=== PATIENT | male | born 1970 | race Caucasian/White ===

== ENCOUNTER 2017-03-31 12:55 | Inpatient (IN) | payer MEDICAID ==
[~2017-03-31] VITALS: Ht 172.7 cm; Wt 190.5 kg
--- NOTE | 2017-03-31 13:00 | NUR ---
PT BIBA FROM HOME FOR INCREASED GENERALIZED WEAKNESS OVER THE PAST COUPLE OF DAYS. PER EMS PATIENT WAS RECENTLY DX WITH DM 03/22/17. PT PLACED ON METFORMI 500MG. PATIENT WAS BROUGHT IN FROM HOME. PATIENT IS AOX4, SPEECH IS DELAYED, GARBLED. PATIENT AROUSABLE TO VERBAL STIMULI. PATIENT FOLLOWS COMMANDS. GCS 14, 3, 5, 6.
--- NOTE | 2017-03-31 13:01 | NUR ---
PT ARRIVED TO ED WITH AN IV TO RIGHT HAND 20 GAUGE.
[2017-03-31 13:16] VITALS: BP 138/89
[2017-03-31] MEDS ORDERED: METF500T PO (13:55)
--- NOTE | 2017-03-31 13:58 | NUR ---
X-Ray at bedside.
[2017-03-31 14:31] LABS: BASOPHILS # (AUTO) 0.2 K/uL (0.00-0.22); BASOPHILS % (AUTO) 2.4 % (0.0-2.0); EOSINOPHILS % (AUTO) 0.1 % (0.0-4.0); HEMATOCRIT 52.7 % (36-52); HEMOGLOBIN 16.5 g/dL (12.0-18.0); LYMPHOCYTES # (AUTO) 1.5 K/uL (2.0-11.5); LYMPHOCYTES % (AUTO) 15.3 % (20.5-51.1); MEAN CORPUSCULAR HEMOGLOBIN 28 pg (27-31); MEAN CORPUSCULAR HGB CONC 31 g/dL (33-37); MEAN CORPUSCULAR VOLUME 89 fL (80-94); MONOCYTES # (AUTO) 0.6 K/uL (0.8-1.0); MONOCYTES % (AUTO) 5.7 % (1.7-9.3); NEUTROPHILS # (AUTO) 7.7 K/uL (1.8-7.7); NEUTROPHILS % (AUTO) 76.5 % (42.2-75.2); PLATELET COUNT (AUTO) 118 K/uL (140-450); RED BLOOD CELL COUNT(AUTO) 5.96 MIL/uL (4.20-6.10); RED CELL DISTRIBUTION WIDTH 15.7 % (11.6-13.7)
[2017-03-31] MEDS ORDERED: NACL 0.9% 2,000 ML IV SCH (14:41)
[2017-03-31] MEDS ORDERED: NACL 0.9% 1,500 ML IV SCH (14:41)
[2017-03-31] MEDS ORDERED: SODIUM BICARBONATE 8.4% PFS 50 MEQ/50 ML SYR IVP ONE (14:45)
[2017-03-31] MEDS ORDERED: SODIUM BICARBONATE 8.4% 100 MEQ in NACL 0.9% 1,000 ML IV SCH (14:45)
[2017-03-31] MEDS ORDERED: INSULIN HUMAN REGULAR 100 UNITS in NACL 0.9% 100 ML IV ONE (14:45)
[2017-03-31 14:52] LABS: ALBUMIN 3.4 g/dL (3.4-5.0); AMYLASE 20 U/L (25-115); ANION GAP 33.1 (8-16); ASPARTATE AMINOTRANSFERASE 51 U/L (15-37); CARBON DIOXIDE 10.5 mmol/L (21-32); CHLORIDE 122 mmol/L (98-107); GFR ARICAN-AMERICAN 47 mL/min (>90); LIPASE 251 U/L (73-393); POTASSIUM 3.6 mmol/L (3.5-5.1); TOTAL BILIRUBIN 0.6 mg/dL (0.0-1.0); UREA NITROGEN, BLOOD 31 mg/dL (7-18)
[2017-03-31 14:55] LABS: CREATINE KINASE MB 0.4 ng/mL (0-3.6)
[2017-03-31 15:02] LABS: GLUCOSE 532 mg/dL (74-106); SODIUM SERUM 162 mmol/L (136-145)
[2017-03-31 15:03] LABS: ACETONE, SERUM LARGE (NEGATIVE)
[2017-03-31 15:17] LABS: APPEARANCE,URINE CLEAR (CLEAR); BILIRUBIN,URINE 2+ (NEGATIVE); BLOOD, URINE 3+ (NEGATIVE); COLOR,URINE YELLOW (YELLOW); LEUKOCYTE ESTERASE ,URINE NEGATIVE (NEGATIVE); NITRITE, URINE NEGATIVE (NEGATIVE); UGLUCOSE 3+ (NEGATIVE)
[2017-03-31 15:33] LABS: RBC,URINE 11-20 (MOD) /HPF (0-5); WBC,URINE 0-5 (RARE) /HPF (0-5)
[2017-03-31 15:40] LABS: FREE T4 (FREE THYROXINE) 0.96 ng/dL (0.76-1.46); THYROID STIMULATING HORMONE 0.65 uIU/mL (0.34-3.74)
--- NOTE | 2017-03-31 15:56 | NUR ---
NEIGHBORS AT BEDSIDE REPORT THE PATIENT WAS SEEN AT [facility] 02/28/17 AND WAS DX WITH DM AND SENT HOME WITH METFORMIN. PT WAS ALSO SEEN AT ANOTHER HOSPITAL 03/29/17 AND WAS DISCHARGED HOME AGAIN. PER THE NEIGHBORS, PATIENT HAS A LADY WHO HE PAYS THAT COOKS FOR HIM AND SHE REPORTED TO THE NEIGHBORS THAT THE PATIENT HAS NOT BEEN EATING WELL, YESTERDAY PT ONLY HAD 2 STRAWBERRIES WITH A DECREASE IN PO INTAKE.
[2017-03-31] MEDS ORDERED: INSULIN HUMAN REGULAR 100 UNITS in NACL 0.9% 100 ML IV SCH (16:15)
[2017-03-31] MEDS ORDERED: INSULIN LISPRO SLIDING SCALE 100 UNITS/ML VIAL SUBQ PRN (16:15)
[2017-03-31] MEDS ORDERED: NACL 0.9% 1,000 ML IV ONE (16:15)
[2017-03-31] MEDS ORDERED: ACETAMINOPHEN 325 MG TAB PO PRN (16:35)
[2017-03-31] MEDS ORDERED: ONDANSETRON 4 MG/2 ML VIAL IVP PRN (16:35)
[2017-03-31] MEDS ORDERED: HYDROcodone/APAP 5/325 MG 1 TAB TAB PO PRN (16:35)
[2017-03-31] MEDS: BLOOD GLUCOSE MONITORING 1 DEV DEV FS SCH ×6 (16:56→23:33)
--- NOTE | 2017-03-31 16:58 | NUR ---
MEDICATIONS INFUSING. PT TOLERATING WALL. WILL CONTINUE TO MONITOR.
--- NOTE | 2017-03-31 17:23 | NUR ---
PT WAS STILL IN ER UNABLE TO DO EKG FOR FLOOR ENDORSED TO RT NICOLE
[2017-03-31] MEDS ORDERED: MORPHINE SULFATE 2 MG/ML SYR IVP SCH (17:40)
--- NOTE | 2017-03-31 17:41 | NUR ---
CONSENT FOR CENTRAL LINE INSERTION OBTAINED AND SIGNED.
[2017-03-31] MEDS ORDERED: LORazepam 2 MG/ML VIAL IM/IVP SCH (17:43)
--- NOTE | 2017-03-31 18:50 | NUR ---
SPOKE TO ROGERIO REGARDING ICU BED. STATED , NURSES HAVE TO MOVE PATIENT TO THE FLOOR. PATIENT STILL IN ER
--- NOTE | 2017-03-31 19:17 | NUR ---
Pt report given to Manjinder DIAZ. Transfer of care at this time.
--- NOTE | 2017-03-31 19:50 | NUR ---
RECEIVED PT TRANSFERRED FROM ER VIA GURNEY, REPORT OBTAINED AT BEDSIDE, PT IS AOX1, DROWSY, ABLE TO FOLLOW SIMPLE COMMANDS, NO S/S OF SOB/DISTRESS, RHONCHI LUNG SOUNDS, ON O2 AT 2L VIA NC, CENTRAL LINE TO RIJ, TLC, PATENT, RUNNING NS AT 250ML/HR, INSULIN DRIP AT 5 UNITS/HR, DENIES CHEST PAIN, ST ON MANAGER TECHNICAL SUPPORT, SOFT LARGE ABDOMEN WITH HYPOACTIVE BOWEL SOUNDS, INCONTINENT WITH B&B'S, GENERALIZED WEAKNESS NOTED, GENERALIZED PAIN NOTED WHEN REPOSITION PT, SKIN IS INTACT, WARM AND DRY TO TOUCH, PERIPHERAL LINE TO LEFT AC, 18GA AND RIGHT [id number], PATENT AND SL. HOB ELEVATED 30 DEGREES, SAFETY PRECAUTION IN PLACE, WILL CONTINUE TO MONITOR.
[2017-03-31 20:00] VITALS: BP 148/74
--- NOTE | 2017-03-31 21:00 | NUR ---
US AT BEDSIDE, CHEST X-RAY AT BEDSIDE.
[2017-03-31 22:00] VITALS: BP 128/76
--- NOTE | 2017-03-31 22:30 | NUR ---
PT IS RESTING IN BED, NO CHANGE OF CONDITION AT THIS TIME, FAMILY MEMBERS AT BEDSIDE, VSS.
[2017-03-31 22:46] LABS: ANION GAP 18.2 (8-16); CARBON DIOXIDE 19.1 mmol/L (21-32); CREATININE 1.7 mg/dL (0.7-1.3)
[2017-03-31 22:49] LABS: MAGNESIUM 2.4 mg/dL (1.8-2.4)
[2017-03-31 23:09] LABS: POTASSIUM 2.3 mmol/L (3.5-5.1)
[2017-03-31 23:10] LABS: PHOSPHORUS 0.8 mg/dL (2.5-4.9)
[2017-03-31] MEDS ORDERED: KCL 20 MEQ/WATER INJ PREMIX 200 ML IV ONE (23:20)
[2017-03-31] MEDS ORDERED: POTASSIUM CHLORIDE 10 MEQ TABER PO ONE (23:25)
[2017-03-31] MEDS: DEXT 5% / NACL 0.45% 1,000 ML IV SCH (23:25)
[2017-04-01] VITALS (12 sets, daily range): BP systolic 91–142; BP diastolic 37–100
--- NOTE | 2017-04-01 | NUR ---
PT IS ASLEEP IN BED, NO CHANGE OF CONDITION AT THIS TIME, STILL ON INSULIN DRIP ORDERED.
[2017-04-01] MEDS: BLOOD GLUCOSE MONITORING 1 DEV DEV FS SCH ×25 (00:25→23:00)
[2017-04-01 00:54] LABS: CARBON DIOXIDE 21.4 mmol/L (21-32); CREATININE 1.7 mg/dL (0.7-1.3)
[2017-04-01 00:57] LABS: MAGNESIUM 2.3 mg/dL (1.8-2.4); PHOSPHORUS 1.1 mg/dL (2.5-4.9)
[2017-04-01 01:01] LABS: POTASSIUM 2.4 mmol/L (3.5-5.1)
--- NOTE | 2017-04-01 02:00 | NUR ---
NO CHANGE OF CONDITION AT THIS TIME, VSS.
[2017-04-01] MEDS: DEXT 5% / NACL 0.45% 1,000 ML IV SCH ×2 (02:38→04:58)
--- NOTE | 2017-04-01 04:00 | NUR ---
AM CARE PROVIDED, PT REFUSED ORAL CARE AT THIS TIME.
[2017-04-01 04:31] LABS: MAGNESIUM 2.1 mg/dL (1.8-2.4)
[2017-04-01 04:50] LABS: ANION GAP 17.6 (8-16); CARBON DIOXIDE 19.9 mmol/L (21-32); CREATININE 1.8 mg/dL (0.7-1.3)
[2017-04-01 04:57] LABS: PHOSPHORUS 0.8 mg/dL (2.5-4.9); POTASSIUM 2.5 mmol/L (3.5-5.1)
[2017-04-01] MEDS ORDERED: KCL 20 MEQ/WATER INJ PREMIX 200 ML IV ONE (05:00)
[2017-04-01] MEDS ORDERED: NACL 0.9% 1,000 ML IV SCH (05:00)
[2017-04-01] MEDS ORDERED: DEXTROSE 50% 50 ML SYR IVP PRN (05:45)
[2017-04-01] MEDS ORDERED: NACL 0.45% 1,000 ML IV SCH (05:45)
[2017-04-01] MEDS ORDERED: INSULIN HUMAN REGULAR 100 UNITS in NACL 0.9% 100 ML IV SCH ×3 (05:45→16:55)
[2017-04-01 05:55] LABS: BASOPHILS # (AUTO) 0.2 K/uL (0.00-0.22); BASOPHILS % (AUTO) 3.3 % (0.0-2.0); EOSINOPHILS % (AUTO) 0.6 % (0.0-4.0); HEMATOCRIT 43.9 % (36-52); LYMPHOCYTES # (AUTO) 1.6 K/uL (2.0-11.5); LYMPHOCYTES % (AUTO) 21.1 % (20.5-51.1); MEAN CORPUSCULAR HEMOGLOBIN 28 pg (27-31); MEAN CORPUSCULAR HGB CONC 32 g/dL (33-37); MEAN CORPUSCULAR VOLUME 88 fL (80-94); MONOCYTES # (AUTO) 0.6 K/uL (0.8-1.0); MONOCYTES % (AUTO) 8.2 % (1.7-9.3); NEUTROPHILS # (AUTO) 5.1 K/uL (1.8-7.7); NEUTROPHILS % (AUTO) 66.8 % (42.2-75.2); PLATELET COUNT (AUTO) 94 K/uL (140-450); RED BLOOD CELL COUNT(AUTO) 4.97 MIL/uL (4.20-6.10); RED CELL DISTRIBUTION WIDTH 15.2 % (11.6-13.7); WHITE BLOOD COUNT (AUTO) 7.5 K/uL (4.8-10.8)
--- NOTE | 2017-04-01 06:00 | NUR ---
NO CHANGE OF CONDITION AT THIS TIME, PT IS STILL DROWSY.
[2017-04-01] MEDS ORDERED: POTASSIUM CHLORIDE 20 MEQ in NACL 0.45% 1,000 ML IV SCH (06:52)
--- NOTE | 2017-04-01 07:17 | NUR ---
PT RESTING IN BED. AWAKE, A/O X4. ABLE TO MAKE NEEDS KNOWN. ST ON MONITOR. SKIN DRY AND WARM TO TOUCH. DIMINISHED LUNGS SOUND ON AUSCULTATION. RIGHT IJ TRIPLE LUMEN INTACT. RUNNING NS AT 400ML/HR. ON KCL DRIP AND INSULIN DRIP RUNNING AT 5 UNIT/HR. PERIPHERAL LINE ON LEFT AC 20 G AND RIGHT HAND 20 G, SALIN LOCK. ABDOMEN SOFT ROUND AND NON-TENDER. HYPOACTIVE BOWEL SOUND. CONDOM CATHETER IN PLACE DRAINING YELLOW URINE. LLE DRY AND SWOLLEN. CALL LIGHT WITHIN REACH. BED IN LOW POSITION, LOCKED. WILL CONTINUE TO MONITOR.
--- NOTE | 2017-04-01 07:17 | NUR ---
REPORT GIVEN TO AM NURSE FOR CONTINUE OF CARE, PT IS IN STABLE CONDITION AT THIS TIME.
[2017-04-01] MEDS ORDERED: SODIUM PHOSPHATE 15 MMOLE in NACL 0.9% 250 ML IV SCH ×2 (08:00→22:40)
[2017-04-01] MEDS: DOCUSATE 100 MG/10 ML UDC PO SCH (08:23)
[2017-04-01 08:26] LABS: HEPATITIS A ANTIBODY IGM Negative (Negative); HEPATITIS B CORE AB TOTAL Negative (Negative); HEPATITIS B SURFACE ANTIBODY Non Reactive (.); HEPATITIS B SURFACE ANTIGEN Negative (Negative)
--- NOTE | 2017-04-01 08:28 | NUR ---
ADMINISTERED MEDICATION TOLERATING WELL. KEPT PT CLEAN AND DRY. NO CHANGE IN LOC. WILL CONTINUE TO MONITOR.
--- NOTE | 2017-04-01 08:36 | NUR ---
PATIENT HAS BEEN SCREENED AND CATEGORIZED HIGH NUTRITION RISK. PATIENT WILL BE SEEN WITHIN 1-2 DAYS OF ADMISSION. 03/31/17-04/01/[address]
--- NOTE | 2017-04-01 08:40 | NUR ---
DR. PISANO AND RESIDENT GROUP IN TO SEE PT. MADE AWARE ABOUT UNAVAILABILITY OF SODIUM PHOSPHATE INJ. WILL FOLLOW UP ON ORDER. FAMILY AT BED SIDE. PT CONDITION EXPLAINED TO FAMILY BY
[2017-04-01] MEDS ORDERED: POTASSIUM PHOSPHATE 15 MM in NACL 0.9% 250 ML IV SCH ×2 (10:00→16:00)
[2017-04-01 10:46] LABS: ANION GAP 14.3 (8-16); CARBON DIOXIDE 22.3 mmol/L (21-32); CREATININE 1.7 mg/dL (0.7-1.3)
[2017-04-01 10:49] LABS: MAGNESIUM 2.1 mg/dL (1.8-2.4)
[2017-04-01 10:51] LABS: POTASSIUM 2.6 mmol/L (3.5-5.1)
[2017-04-01 10:54] LABS: PHOSPHORUS 0.6 mg/dL (2.5-4.9)
--- NOTE | 2017-04-01 11:00 | NUR ---
KEPT PT CLEAN AND DRY. PT RESTING IN BED COMFORTABLY. NO ACUTE DISTRESS. NO CHANGE IN LOC. WILL CONTINUE TO MONITOR.
[2017-04-01] MEDS ORDERED: KCL 20 MEQ/WATER INJ PREMIX 200 ML IV SCH (12:00)
[2017-04-01] MEDS: POTASSIUM CHL 20 MEQ/ 1/2 NS 1,000 ML IV SCH ×4 (12:50→21:10)
--- NOTE | 2017-04-01 13:11 | NUR ---
DRAW BLOOD FOR BMP, MG AND PHOSPHORUS. SENT TO THE LAB.
[2017-04-01 13:24] LABS: ANION GAP 14.4 (8-16); CARBON DIOXIDE 22.4 mmol/L (21-32); CREATININE 1.6 mg/dL (0.7-1.3)
[2017-04-01 13:27] LABS: POTASSIUM 2.8 mmol/L (3.5-5.1)
--- NOTE | 2017-04-01 13:28 | NUR ---
DR. ROBLERO MADE AWARE ABOUT LAB NA 169 AND POTASSIUM 2.8.
[2017-04-01 13:40] LABS: MAGNESIUM 2.1 mg/dL (1.8-2.4); PHOSPHORUS 1.2 mg/dL (2.5-4.9)
--- NOTE | 2017-04-01 14:34 | NUR ---
04/01/17 RD INITIAL ASSESSMENT COMPLETED PLEASE REFER TO NUTRITION ASSESSMENT UNDER CARE ACTIVITY FOR ESTIMATED NUTRITIONAL NEEDS. 1.CONTINUE NPO STATUS MEDICALLY NECESSARY 2.ADVANCE DIET TOLERATED ONCE APPROPRIATE, CONSIDER CCHO DIET FOR GLUCOSE CONTROL 3.RD TO PROVIDE MEDICAL NUTRITION THERAPY ONCE PT AROUSABLE FOR DISCUSSION. 4.RD TO FOLLOW-UP IN 2-3 DAYS, HIGH RISK GERRI CHAUHAN, RD
--- NOTE | 2017-04-01 15:12 | NUR ---
PT RESTING IN BED COMFORTABLY. ST ON MONITOR. NO ACUTE DISTRESS. NO CHANGE IN LOC. WILL CONTINUE TO MONITOR.
[2017-04-01] MEDS ORDERED: POTASSIUM CHLORIDE 40 MEQ in NACL 0.9% 250 ML IV SCH ×2 (16:00→22:00)
--- NOTE | 2017-04-01 16:00 | NUR ---
BS 254. WAITING PHARMACY TO DELIVER INSULIN.
--- NOTE | 2017-04-01 16:41 | NUR ---
CALLED DR. SORTO MADE AWARE ABOUT PENDING LAB RESULT AND INSULIN DRIP.
--- NOTE | 2017-04-01 18:38 | NUR ---
PT RESTING IN BED COMFORTABLY. NO ACUTE DISTRESS. NO CHANGE IN LOC. FAMILY AT BEDSIDE. WILL CONTINUE TO MONITOR.
--- NOTE | 2017-04-01 18:45 | NUR ---
RECEIVED PATIENT AWAKE, CONFUSED, SPEECH GARBLED. SKIN WARM AND DRY TO TOUCH. RESPIRATIONS EVEN AND UNLABORED. PERRL. RIGHT IJ TRIPLE LUMEN INTACT AND PATENT, CLEAR DRESSING IN PLACE NO ACTIVE BLEEDING NOTED. LUNG SOUNDS EQUAL BILATERALLY, DIMINISHED ON BOTH LUNG CHRISTIANSON. NO ADVENTITIOUS HEART SOUNDS TO AUSCULTATION. ABDOMEN SOFT, ROUND, ACTIVE BOWEL SOUNDS TO ALL QUADRANTS. ABDOMEN NON-TENDER TO TOUCH. URINE COLLECTION BAG DRAINING TO GRAVITY YELLOW URINE. DENIES PAIN OR DISCOMFORT AT THIS TIME. SAFETY PRECAUTIONS MAINTAINED AT ALL TIMES. CALL LIGHT WITHIN REACH, BED ON LOW POSITION, BED ALARM FOR PRECAUTION. WILL CONTINUE TO MONITOR.
[2017-04-01 18:52] LABS: ANION GAP 11.7 (8-16); CARBON DIOXIDE 23.4 mmol/L (21-32); CREATININE 1.7 mg/dL (0.7-1.3); POTASSIUM 3.1 mmol/L (3.5-5.1)
[2017-04-01 18:56] LABS: PHOSPHORUS 1.4 mg/dL (2.5-4.9)
--- NOTE | 2017-04-01 19:25 | NUR ---
REPORT GIVEN TO NOC SHIFT RN FOR CONTINUITY OF CARE. PT ON STABLE CONDITION.
--- NOTE | 2017-04-01 19:25 | NUR ---
RECEIVED REPORT FROM RN AT BEDSIDE.
--- NOTE | 2017-04-01 19:32 | NUR ---
RECEIVED CRITICAL LAB VALUE, NA: 168, PAGED DR. SHEN AWAITING CALL BACK.
--- NOTE | 2017-04-01 20:15 | NUR ---
CALLED DR. SHEN, MADE AWARE CRITICAL LAB VALUE NA 168, NO NEW ORDERS.
--- NOTE | 2017-04-01 20:30 | NUR ---
TURNED AND REPOSITIONED PATIENT TO OFFLOAD PRESSURE AREAS.
[2017-04-01 20:47] LABS: ANION GAP 16.6 (8-16); CARBON DIOXIDE 20.4 mmol/L (21-32); CREATININE 1.7 mg/dL (0.7-1.3)
[2017-04-01 20:51] LABS: MAGNESIUM 1.9 mg/dL (1.8-2.4)
--- NOTE | 2017-04-01 20:57 | NUR ---
HEPARIN 5000 UNITS HELD, PLATELET 94. WILL CONTINUE TO MONITOR.
[2017-04-01 21:09] LABS: BARBITURATE, URINE NEG. ng/ml (NEG <=200); BENZODIAZEPINE, URINE NEG. ng/mL (NEG <=200); CANNABINOID, URINE NEG. ng/mL (NEG <=50); COCAINE, URINE NEG. ng/mL (NEG <=300); OPIATE, URINE NEG. ng/mL (NEG <=2000); PHENCYCLIDINE SCREEN,URINE NEG. ng/mL (NEG <=25)
--- NOTE | 2017-04-01 21:45 | NUR ---
RECEIVED VENOUS ABG RESULTS, NOTIFIED DR. SHEN OF RESULTS, NO NEW ORDERS AT THIS TIME.
--- NOTE | 2017-04-01 23:57 | NUR ---
CALLED DR. SHEN AND NOTIFIED POTASSIUM LEVEL AT 4.0. RECEIVED ORDER TO DISCONTINUE POTASSIUM CHLORIDE 40 MEQ IN .9 NS. VERIFIED ORDER AND READ BACK, NOTED AND CARRIED OUT.
[2017-04-02] VITALS (12 sets, daily range): BP systolic 97–123; BP diastolic 43–88
--- NOTE | 2017-04-02 00:27 | NUR ---
PATIENT WITH ELEVATED TEMPERATURE, GIVEN COOLING BATH AND TOLERATED WELL. GIVEN PRN ACETAMINOPHEN 650 MG PO. PATIENT REFUSED TO TURN AT THIS TIME. KEPT COMFORTABLE. DENIES ANY PAIN OR DISCOMFORT AT THIS TIME. WILL CONTINUE TO MONITOR.
[2017-04-02 00:36] LABS: CREATININE 1.6 mg/dL (0.7-1.3)
[2017-04-02 00:38] LABS: MAGNESIUM 1.8 mg/dL (1.8-2.4); PHOSPHORUS 1.8 mg/dL (2.5-4.9)
--- NOTE | 2017-04-02 01:00 | NUR ---
CLARIFIED WITH DR. OLMEDO ORDER FOR INSULIN DRIP CHANGED TO .1 UNIT/KG/HR. PATIENT IS 186.4 KG, INSULIN DRIP INFUSION RATE 18 U/HR OR 18 ML/HR. BLOOD SUGAR AT THIS TIME 260 MG/DL. WILL CONTINUE TO MONITOR PATIENT.
--- NOTE | 2017-04-02 01:30 | NUR ---
RECHECKED TEMPERATURE, 98.5 DEGREES FAHRENHEIT. SKIN WARM AND DRY TO TOUCH. PATIENT COMFORTABLE, DENIES PAIN AT THIS TIME. WILL CONTINUE TO MONITOR.
[2017-04-02] MEDS: BLOOD GLUCOSE MONITORING 1 DEV DEV FS SCH ×17 (01:46→21:00)
--- NOTE | 2017-04-02 02:05 | NUR ---
BLOOD SUGAR CHECK DONE: 228 MG/DL. CONTINUE ON 18 U/HR, PER DR. OLMEDO'S ORDER. WILL CONTINUE TO MONITOR PATIENT.
[2017-04-02] MEDS ORDERED: DEXT 5% / NACL 0.45% 1,000 ML IV SCH (02:55)
[2017-04-02] MEDS ORDERED: POTASSIUM CHL IV ONE (02:55)
[2017-04-02] MEDS ORDERED: 1/2 NS IV ONE (02:55)
--- NOTE | 2017-04-02 03:00 | NUR ---
NOTIFIED DR. OLMEDO BLOOD SUGAR AT THIS TIME 178 MG/DL. RECEIVED ORDER TO HOLD INSULIN DRIP, CONTINUE ON HOURLY ACCUCHECKS. D/C KCL 20 MEQ @ 250 ML/HR AND START ON D5 1/2 NS @ 250 ML/HR. WILL CONTINUE TO MONITOR PATIENT Addendum: 04/02/17 at 0344 by Dennis Epps RN NOTIFIED DR. OLMEDO BLOOD SUGAR AT THIS TIME 178 MG/DL. RECEIVED ORDER CONTINUE ON HOURLY ACCUCHECKS. D/C KCL 20 MEQ @ 250 ML/HR AND START ON D5 1/2 NS @ 250 ML/HR. WILL CONTINUE TO MONITOR PATIENT
--- NOTE | 2017-04-02 03:18 | NUR ---
CLARIFIED WITH DR. OLMEDO INSULIN DRIP RATE, SAID TO CHANGE RATE TO .05 UNIT/KG/HR. CONFIRMED RATE FOR 186 KG PATIENT AT 9 UNITS/HR.
[2017-04-02] MEDS ORDERED: INSULIN HUMAN REGULAR 100 UNITS in NACL 0.9% 100 ML IV SCH ×3 (03:50)
[2017-04-02 04:30] LABS: CARBON DIOXIDE 24.8 mmol/L (21-32); CREATININE 1.6 mg/dL (0.7-1.3); POTASSIUM 3.8 mmol/L (3.5-5.1)
[2017-04-02 04:34] LABS: MAGNESIUM 1.9 mg/dL (1.8-2.4); PHOSPHORUS 1.7 mg/dL (2.5-4.9)
--- NOTE | 2017-04-02 04:50 | NUR ---
CALLED DR. OLMEDO AND MADE AWARE CRITICAL LAB RESULT: SODIUM LEVEL 171, NO NEW ORDERS RECEIVED AT THIS TIME.
[2017-04-02] MEDS ORDERED: POTASSIUM PHOSPHATE 15 MM in NACL 0.9% 250 ML IV ONE (05:25)
--- NOTE | 2017-04-02 06:07 | NUR ---
DR. FLYNN SEEN PATIENT, TO ADVANCE DIET TO CLEAR DIET. PATIENT NOT TOLERATING LIQUIDS WELL. WILL ADVANCE TOLERATED. ENSURED HEAD OF BED ELEVATED WHILE GIVING FLUIDS.
--- NOTE | 2017-04-02 06:12 | NUR ---
NOTIFIED DR. FLYNN KCL 20 MEQ IV AND POTASSIUM PHOSPHATE 15 MM IN NS NOT AVAILABLE AT THIS TIME. WILL ENDORSE TO INCOMING SHIFT TO FOLLOW UP WITH PHARMACY.
[2017-04-02] MEDS: DEXTROSE 5% 1,000 ML IV SCH ×2 (06:54→18:47)
[2017-04-02] MEDS: NACL 0.45% 1,000 ML IV SCH ×3 (06:54→19:36)
--- NOTE | 2017-04-02 07:15 | NUR ---
REPORT GIVEN TO EMILY TURNER AT BEDSIDE FOR CONTINUITY OF CARE.
--- NOTE | 2017-04-02 07:30 | NUR ---
REPORT RECEIVED FROM BIOFUELS TECHNOLOGY MANAGER NURSE. PT IS AWAKE, AAOX2, CONFUSED. SINUS TACHY ON MONITOR. PT IS ON ROOM AIR, O2 SAT 100%, RESPIRATION EVEN AND NONLABORED. NO SOB NOTED. LUNGS SOUND DIMINISHED. CENTRAL LINE TLC TO RIGHT IJ PATENT AND INTACT, RUNNING INSULIN DRIP AT 9 ML/HR, D5 AT 150 ML/HR, 1/2 NS AT 80 ML/HR. ABDOMEN SOFT, ROUND, NONTENDER WITH ACTIVE BOWEL SOUNDS. SKIN IS DRY AND WARM TO TOUCH. URINE COLLECTION BAG DRAINING YELLO URINE TO GRAVITY DRAINAGE BAG. SKIN INTACT. NO C/O PAIN OR DISCOMFORT AT THIS TIME. HOB 45 DEGREES, BED IN LOWEST POSITION AND CALL LIGHT WITHIN REACH. SAFETY PRECAUTIONS IN PLACE. WILL CONTINUE TO MONITOR.
--- NOTE | 2017-04-02 08:30 | NUR ---
PT HAD AN EPISODE OF COUGHING AFTER TAKING A FEW SIPS OF CLEAR LIQUID BREAKFAST. HOB AT 60 DEGREES. NO VOMITING, ACUTE DISTRESS NOTED. WILL CONTINUE TO MONITOR.
[2017-04-02] MEDS: KCL 20 MEQ/WATER INJ PREMIX 200 ML IV SCH ×4 (08:33→16:00)
--- NOTE | 2017-04-02 09:00 | NUR ---
DR. BERG IN TO SEE PT. WILL FOLLOW UP ON ORDERS.
--- NOTE | 2017-04-02 09:15 | NUR ---
RECEIVED A CALL FROM PT'S SISTER, KATTY, AND GAVE UPDATE ON PT.
[2017-04-02] MEDS: DOCUSATE 100 MG/10 ML UDC PO SCH (09:27)
--- NOTE | 2017-04-02 09:30 | NUR ---
MEDICATIONS ADMINISTERED. PT TOLERATED WELL.
--- NOTE | 2017-04-02 10:10 | NUR ---
CALLED DR. VIVEK LYN [phone] REVIEWED PATIENT VBG SAMPLE REPORT
[2017-04-02 10:21] LABS: ANION GAP 12.9 (8-16); CARBON DIOXIDE 25.4 mmol/L (21-32); CREATININE 1.4 mg/dL (0.7-1.3); POTASSIUM 3.3 mmol/L (3.5-5.1)
[2017-04-02 10:23] LABS: MAGNESIUM 1.8 mg/dL (1.8-2.4); PHOSPHORUS 1.4 mg/dL (2.5-4.9)
--- NOTE | 2017-04-02 10:38 | NUR ---
FAMILY AT BEDSIDE. NO SOB OR ACUTE DISTRESS AT THIS TIME. VITAL SIGNS STABLE. WILL CONTINUE TO MONITOR.
[2017-04-02] MEDS ORDERED: POTASSIUM PHOSPHATE 15 MM in NACL 0.9% 250 ML IV SCH (11:00)
--- NOTE | 2017-04-02 12:21 | NUR ---
CALLED DR. ROBER LYN [phone] WITH NO ANSWER FOLLOWED BY CALL TO PAGER [phone] WITH CALL BACK TO RESPIRATORY DEPT [phone]
--- NOTE | 2017-04-02 13:00 | NUR ---
PT TAKES 25% OF CLEAR LIQUID LUNCH. PT TRIES TO CLEAR THROAT. NO COUGHING OR VOMITING NOTED. VITAL SIGNS STABLE.
[2017-04-02] MEDS ORDERED: PROBIOTIC SCREEN 1 EA MISC MC PRN (13:50)
[2017-04-02 14:39] LABS: MAGNESIUM 1.7 mg/dL (1.8-2.4); PHOSPHORUS 1.5 mg/dL (2.5-4.9)
--- NOTE | 2017-04-02 15:20 | NUR ---
NO CHANGE OF CONDITION AT THIS TIME. VITAL SIGNS STABLE. NO C/O PAIN OR DISCOMFORT. SAFETY PRECAUTIONS IN PLACE. WILL CONTINUE TO MONITOR.
[2017-04-02] MEDS ORDERED: INSULIN NPH HUMAN ISOPHANE 100 UNIT/ML VIAL SUBQ SCH (15:30)
--- NOTE | 2017-04-02 16:09 | NUR ---
CALLED DR. ROBER LYN [phone] REVIEWED VENOUS BLOOD SAMPLE REPORT
--- NOTE | 2017-04-02 18:32 | NUR ---
SISTER AND NIECE AT BEDSIDE. NO SOB OR ACUTE DISTRESS NOTED AT THIS TIME. VITAL SIGNS STABLE. NO SOB OR ACUTE DISTRESS. HOB 30 DEGREES, BED IN LOWEST POSITION AND CALL LIGHT WITHIN REACH. WILL CONTINUE TO MONITOR.
--- NOTE | 2017-04-02 19:30 | NUR ---
REPORT GIVEN TO REMODELER NURSE FOR CONTINUITY OF CARE. PT IS IN STABLE CONDITION.
--- NOTE | 2017-04-02 19:40 | NUR ---
RECEIVED REPORT FROM JOHNNY DIAZ AM SHIFT. PT IS AWAKE ,ALERT,ORIENTED X2. ABLE TO ANSWER SIMPLE QUESTION. PT ON ROOM AIR WITH SPO2 98%. NO S/S OF RESP DISTRESS. NO SOB. HOB UP 30-45 DEGREE. RONCHI NOTED TO NADER LUNGS. MILD CONGESTION NOTED.ST TO SR ON MONITOR.RIGHT IJ WITH TRIPLE LUMEN INTACT WELL. WITH IVP D5 AT 150 CC/HR AND 1/2 NS AT 80 CC/HR. LEFT AC NO 20 SALINE LOCK. ABD SOFT NON DISTENDED. GENERALIZED WEAK NESS NOTED. PT IS INCONTINENT BOWEL AND BLADDER. GENTLE CARE GIVEN. KEPT CLEAN AND DRY. CALL LIGHT IN REACH.
--- NOTE | 2017-04-02 20:30 | NUR ---
NO FEVER. T 97.9. BLOOD SUGAR 238 INSULIN GIVEN ORDER. HEPARIN INJ GIVEN ORDER. 2 FRIEND COME TO SEE PT.PT IS AWAKE.
[2017-04-02 20:46] LABS: ANION GAP 13.6 (8-16); CARBON DIOXIDE 20.2 mmol/L (21-32); CREATININE 1.2 mg/dL (0.7-1.3)
[2017-04-02 20:54] LABS: POTASSIUM 2.8 mmol/L (3.5-5.1)
[2017-04-02] MEDS ORDERED: KCL 20 MEQ/WATER INJ PREMIX 200 ML IV SCH (20:55)
[2017-04-02] MEDS: INSULIN LISPRO SLIDING SCALE 100 UNITS/ML VIAL SUBQ PRN (20:59)
[2017-04-02] MEDS ORDERED: INSULIN HUMAN NPH 100 UNITS/ML VIAL SUBQ SCH (21:00)
--- NOTE | 2017-04-02 21:15 | NUR ---
LAB REPORTED THAT NA+ IS 166 AND K 2.8. MADE AWARE.
--- NOTE | 2017-04-02 22:00 | NUR ---
REPORT GIVEN TO ROSS DIAZ. MADE AWARE POTASSIUM IS LOW AND MD IS AWARE. PT IS SLEEPING EASY TO AWAKE.
--- NOTE | 2017-04-02 22:00 | NUR ---
RECEIVED REPORT FROM JACKIE RN AT BEDSIDE, PT IS AOX2, ABLE TO FOLLOW SIMPLE COMMANDS, NO S/S OF SOB/DISTRESS, RHONCHI LUNG SOUNDS, ON RA, CENTRAL LINE TO RIJ, TLC, PATENT, RUNNING 1/2 NS AT 80ML/HR, D5 WATER AT 80ML/HR, DENIES CHEST PAIN, ST ON BASIC COMBATANT SWIMMER, SOFT LARGE ABDOMEN WITH HYPOACTIVE BOWEL SOUNDS, CURRENTLY ON CLEAR LIQUID DIET, INCONTINENT WITH B&B'S, GENERALIZED WEAKNESS NOTED, GENERALIZED PAIN NOTED WHEN REPOSITION PT, SKIN IS INTACT, WARM AND DRY TO TOUCH, REORIENTED PT, HOB ELEVATED 30 DEGREES, SAFETY PRECAUTION IN PLACE, DENIES PAIN, VSS, WILL CONTINUE TO MONITOR.
[2017-04-02 23:27] LABS: MAGNESIUM 1.7 mg/dL (1.8-2.4); PHOSPHORUS 2.3 mg/dL (2.5-4.9)
[2017-04-02 23:28] LABS: CARBON DIOXIDE 21.3 mmol/L (21-32)
[2017-04-02 23:29] LABS: CREATININE 1.2 mg/dL (0.7-1.3)
[2017-04-02 23:31] LABS: ANION GAP 15.7 (8-16)
[2017-04-03] VITALS (11 sets, daily range): BP systolic 94–127; BP diastolic 43–75
--- NOTE | 2017-04-03 | NUR ---
PT IS IN ASLEEP AT THIS TIME. AROUSABLE TO NAME. NO ACUTE DISTRESS NOTED.
--- NOTE | 2017-04-03 02:00 | NUR ---
PT IS IN ASLEEP WITH CALM, RESPONSIVE TO CALLING. NO ACUTE DISTRESS NOTED. WILL CONTINUE TO MONITOR.
[2017-04-03] MEDS: NACL 0.45% 1,000 ML IV SCH ×3 (03:05→20:05)
--- NOTE | 2017-04-03 04:00 | NUR ---
PT IS AWAKE, REQUEST FOR BED HOLLAND FOR BOWEL MOVEMENT. PT TRIED TO HAVE BOWEL MOVEMENT BUT NO BM COMING OUT. NO DISTRESS NOTED.
--- NOTE | 2017-04-03 05:30 | NUR ---
AT BEDSIDE TO CHECK THE PT. WILL FOLLOW THE ORDER.
[2017-04-03] MEDS ORDERED: KCL 20 MEQ/WATER INJ PREMIX 100 ML IV SCH (06:00)
--- NOTE | 2017-04-03 06:00 | NUR ---
DR. OLIVIER AT THE BEDSIDE TO CHECK THE PT, WILL FOLLOW THE ORDER.
[2017-04-03 06:40] LABS: CARBON DIOXIDE 25.3 mmol/L (21-32); POTASSIUM 3.3 mmol/L (3.5-5.1)
[2017-04-03 06:41] LABS: CREATININE 1.2 mg/dL (0.7-1.3)
[2017-04-03] MEDS: BLOOD GLUCOSE MONITORING 1 DEV DEV FS SCH ×4 (07:24→20:05)
[2017-04-03] MEDS: INSULIN LISPRO SLIDING SCALE 100 UNITS/ML VIAL SUBQ PRN ×4 (07:25→20:44)
--- NOTE | 2017-04-03 07:26 | NUR ---
REPORT GIVEN TO EMILY ABRAMS AT BEDSIDE FOR CONTINUE OF CARE, PT IS IN STABLE CONDITION AT THIS TIME.
--- NOTE | 2017-04-03 07:32 | NUR ---
RECEIVED PATIENT ON BED .INITIAL ASSESSMENT DONE TO PATIENT.NO CO PAIN NOR SHORTNESS OF BREATH.RIGHT IJ TRIPLE LUMEN CATHETER WITH ONE SUTURE OUT AND OTHER SUTURE INTACT.DR PISANO MADE AWARE.NO ORDERS.SECURED WITH TAPE.NSR ON THE MONITOR.PT CAN TURN WITH ASSISTANCE.
[2017-04-03] MEDS: DEXTROSE 5% 1,000 ML IV SCH (08:00)
[2017-04-03] MEDS: DOCUSATE 100 MG/10 ML UDC PO SCH ×2 (09:00→09:56)
[2017-04-03] MEDS ORDERED: INSULIN NPH HUM/REG INSULIN HM 100 UNIT/ML 10 ML VIAL SUBQ SCH (09:00)
[2017-04-03] MEDS: POTASSIUM CHLORIDE 10 MEQ TABER PO SCH ×2 (09:08→09:56)
[2017-04-03 13:49] LABS: ANION GAP 10.8 (8-16); CARBON DIOXIDE 27.3 mmol/L (21-32); CREATININE 1.1 mg/dL (0.7-1.3); POTASSIUM 3.1 mmol/L (3.5-5.1)
--- NOTE | 2017-04-03 13:50 | NUR ---
report given to alonzo yost rn
--- NOTE | 2017-04-03 14:44 | NUR ---
EARLY CHILDHOOD AIDE CLASSROOM note (bedside swallow evaluation completed) [id number]. Bedside swallow evaluation completed, please see report for details. EARLY CHILDHOOD AIDE CLASSROOM provided pt and pt's brother (Geoffrey, at bedside) with education regarding purpose of evaluation and rationale for recommendations. Pt and his brother verbalized agreement and understanding of recommendations at this time. Recommend: 1) pureed textures 2) nectar-thick liquids by spoon only 3) no straws 4) 100% feeding assistance 5) strict aspiration precautions (including pt must be FULLY awake/alert/upright for any PO intakes, alternate small/slow bites and sips, stop giving PO if pt becomes less alert/SOB/coughing) 6) EARLY CHILDHOOD AIDE CLASSROOM to f/u for dysphagia therapy 3 x week x 1 week G-codes: [id number] [id number] [facility] NOMS level 3. PVE for d/w RN Ava) prior to and following bedside swallow evaluation completion. Pt is pending transfer out of ICU, so safe swallow strategies sign was taped to the front of pt's paper chart per RN's recommendation.
[2017-04-03] MEDS ORDERED: POTASSIUM CHLORIDE 20% 40 MEQ/15 ML UDC PO SCH (15:02)
--- NOTE | 2017-04-03 17:08 | NUR ---
dr anglin made aware [facility] triple lumen catheter looks out .dressing out and rn was about to change and noticed it..pt moves alot. Addendum: 04/03/17 at 1709 by Ashanti Eason RN RN all iv dc as of moment for md to evaluate.
--- NOTE | 2017-04-03 17:30 | NUR ---
DR BARTH SAW THE RIGHT IJ TRIPLE LUMEN AND PER MD STILL OK TO USE .RIJ WITH GOOD BLOOD RETURN AND FLUSHES GOOD.SUGGESTED CHEST XRAY BUT SAID NO NEED.ASHWIN MANAGER CONFIGURATION AWARE.
--- NOTE | 2017-04-03 17:50 | NUR ---
pt transferred by supervisor backfilling ángel to 115 a .no co pain nor any discomfort.dressing was done to right ij triple lumen catheter.no signs of infection with good blood return and flushable.
--- NOTE | 2017-04-03 18:13 | NUR ---
RECEIVED PT ON UNIT VIA BED, PT IS A/OX4, AMBULATORY, PT HAS RIGHT IJ X 3 LUMEN PATENT, INTACT, FLUSHING WELL, SKIN IS INTACT, PT HAS CONDOM CATHETER IN PLACE, NO S/S OF RESPIRATORY DISTRESS OR DISCOMFORT NOTED, ORIENTED PT TO ROOM, DISCUSSED PLAN OF CARE WITH PT, PT VERBALIZED UNDERSTANDING, CALL LIGHT WITHIN REACH, WILL CONTINUE TO MONITOR.
[2017-04-03 18:27] LABS: ANION GAP 16.2 (8-16); CARBON DIOXIDE 25.1 mmol/L (21-32); CREATININE 1.1 mg/dL (0.7-1.3); POTASSIUM 3.3 mmol/L (3.5-5.1)
--- NOTE | 2017-04-03 19:24 | NUR ---
ENDORSED PT TO PARTRIDGE FARMER NURSE FOR CONTINUITY OF CARE, PT STABLE AT THIS TIME.
--- NOTE | 2017-04-03 19:30 | NUR ---
RECEIVED REPORT FROM DAY SHIFT RN, PATIENT RESTING IN BED, NO S/S OF DISTRESS NOTED, RESPIRATION EVEN AND UNLABORED. RT INTERNAL JUGULAR TRIPLE LUMEN CENTRAL LINE IN PLACE, DRESSING DRY AND INTACT. PLAN OF CARE DISCUSSED, PATIENT VERBALIZED UNDERSTANDING, CALL LIGHT WITHIN REACH, SAFETY MEASURE ENSURED, WILL CONTINUE TO MONITOR.
[2017-04-03] MEDS: INSULIN NPH HUM/REG INSULIN HM 100 UNIT/ML 10 ML VIAL SUBQ SCH (20:42)
--- NOTE | 2017-04-03 20:46 | NUR ---
INFORMED DR. OLMEDO THAT PLT COUNT WAS 94 ON 04/01/17, AND HIS HAS HEPARIN SCHEDULED, ASKED DR. OLMEDO IF I SHOULD HOLD THE HEPARIN, DR. OLMEDO SAID," GIVE THE HEPARIN BECAUSE PATIENT IS NOT MOVING AROUND."
[2017-04-03 23:13] LABS: ANION GAP 10.4 (8-16); CARBON DIOXIDE 28.4 mmol/L (21-32)
[2017-04-03 23:28] LABS: MAGNESIUM 1.7 mg/dL (1.8-2.4); PHOSPHORUS 1.3 mg/dL (2.5-4.9)
[2017-04-03 23:31] LABS: POTASSIUM 2.8 mmol/L (3.5-5.1)
[2017-04-03] MEDS ORDERED: KCL 20 MEQ/WATER INJ PREMIX 200 ML IV SCH (23:35)
[2017-04-04] VITALS: BP 114/68
--- NOTE | 2017-04-04 00:16 | NUR ---
POTASSIUM CHL 20MEQ IVP STARTED, PATIENT IS SLEEPING, EASY TO AROUSE, NO S/S OF DISTRESS NOTED, RESPIRATION EVEN AND UNLABORED, CALL LIGHT WITHIN REACH, SAFETY MEASURE ENSURED ,WILL CONTINUE TO MONITOR.
--- NOTE | 2017-04-04 02:45 | NUR ---
SECOND BAG OF POTASSIUM CHL 20MEQ STARTED, PATIENT WAS SLEEPING, EASY TO AROUSE, NO S/S OF DISTRESS NOTED, RESPIRATION EVEN AND UNLABORED, CALL LIGHT WITHIN REACH, SAFETY MEASURE ENSURED, WILL CONTINUE TO MONITOR.
[2017-04-04 03:54] VITALS: BP 119/57
[2017-04-04 05:02] LABS: ANION GAP 8.9 (8-16); CARBON DIOXIDE 30.1 mmol/L (21-32); CREATININE 0.9 mg/dL (0.7-1.3)
[2017-04-04 05:25] LABS: MAGNESIUM 1.7 mg/dL (1.8-2.4); PHOSPHORUS 1.7 mg/dL (2.5-4.9)
[2017-04-04] MEDS: NACL 0.45% 1,000 ML IV SCH ×2 (05:43→17:43)
--- NOTE | 2017-04-04 05:54 | NUR ---
PATIENT WAS SLEEPING, EASY TO AROUSE, NO S/S OF DISTRESS NOTED, RESPIRATION EVEN AND UNLABORED. CALL LIGHT WITHIN REACH, SAFETY MEASURE ENSURED, WILL CONTINUE TO MONITOR.
[2017-04-04] MEDS: INSULIN LISPRO SLIDING SCALE 100 UNITS/ML VIAL SUBQ PRN ×3 (06:17→17:53)
[2017-04-04] MEDS: BLOOD GLUCOSE MONITORING 1 DEV DEV FS SCH ×4 (06:19→20:40)
[2017-04-04] MEDS: DEXTROSE 5% 1,000 ML IV SCH (06:22)
[2017-04-04 08:00] VITALS: BP 120/59
--- NOTE | 2017-04-04 08:35 | NUR ---
PATIENT REPORT GIVEN AT BEDSIDE, PATIENT IS AAOX3 AND SHOWS NO S/S OF ACUTE DISTRESS ON ROOM AIR. ON TELE MONITOR. NOTED DUSKY SKIN TONE AND BLE SKIN RASH. CONDOM CATHETER DISCONTINUED AND PATIENT GIVEN URINAL TO USE. RT IJ TRIPLE LUMEN ASSESSED AND ONLY BROWN PORT IS PATENT AND INFUSING WELL. PATIENT DENIES PAIN AT THIS TIME. DISCUSSED POC WITH PATIENT AND HE VERBALIZED UNDERSTANDING. THE BED IS IN LOW POSITION WITH CALL LIGHT WITHIN REACH.
[2017-04-04] MEDS: DOCUSATE 100 MG/10 ML UDC PO SCH (09:47)
[2017-04-04] MEDS: INSULIN NPH HUM/REG INSULIN HM 100 UNIT/ML 10 ML VIAL SUBQ SCH ×2 (09:58→20:41)
--- NOTE | 2017-04-04 10:00 | NUR ---
ADMINISTERED SCHEDULED MEDICATIONS. PATIENT SWALLOWED SMALL AMOUNT OF LIQUID MED WITHOUT DIFFICULTY. PATIENT BS IS 283 AND WAS GIVEN HUMULIN 25 UNITS. PATIENT'S TRIPLE LUMEN INFUSING D5 ON BROWN PORT, OTHER PORTS ARE NOT PATENT. PATIENT HAS OTHER IVF'S ORDERED WILL NOTIFY
--- NOTE | 2017-04-04 11:00 | NUR ---
DR ALVAREZ AWARE OF TWO LUMEN FROM CENTRAL LINE NOT WORKING PROPERLY. BROWN PORT FROM TRIPLE LUMEN IS INFUSING IVF'S WELL. TO PLACE ORDERS.
[2017-04-04] MEDS ORDERED: MAGNESIUM OXIDE 400 MG TAB PO SCH (11:30)
[2017-04-04 12:00] VITALS: BP 139/70
[2017-04-04] MEDS ORDERED: MAG SULF 2000 MG/WATER PREMIX 100 ML IV SCH (12:00)
--- NOTE | 2017-04-04 12:51 | NUR ---
IV MAGNESIUM ADMINISTERED. IV INFUSING WELL. ALL NEEDS MET AT THIS TIME.
[2017-04-04] MEDS ORDERED: SODIUM PHOS / POTASSIUM PHOS 1 PKT PDR PO SCH (14:00)
[2017-04-04] MEDS ORDERED: POTASSIUM CHLORIDE 40 MEQ, LIDOCAINE 1% 25 MG in NACL 0.9% 250 ML IV SCH (14:30)
--- NOTE | 2017-04-04 15:10 | NUR ---
ADMINISTERED IV POTASSIUM. IV MEDICATIONS INFUSING WELL. BED IN LOW POSITION, CALL LIGHT WITHIN REACH. ALL NEEDS MET AT THIS TIME.
--- NOTE | 2017-04-04 15:30 | NUR ---
DR ALVAREZ AT BEDSIDE.
[2017-04-04 16:00] VITALS: BP 125/60
--- NOTE | 2017-04-04 16:14 | NUR ---
04/04/17 RD FOLLOW UP COMPLETED PLEASE REFER TO NUTRITION PROGRESS NOTE UNDER CARE ACTIVITY FOR ESTIMATED NUTRITION NEEDS. RD RECOMMENDATIONS: 1. CONTINUE CCHO 60 GM PUREED, NECTAR THICK DIET TOLERATED. -NOTE PT REFUSED BREAKFAST THIS MORNING. 2. RECOMMEND ENCOURAGING INCREASED PO INTAKE WITH PT FOR ADEQUATE NUTRITION AND HEALING. 3. IF PATIENT CONTINUES WITH POOR PO INTAKE, CONSIDER ADDING BOOST GLUCOSE CONTROL FOR ADDITIONAL KCAL AND PROTEIN REPLETION (EACH BOOST GLUCOSE PROVIDES 250 KCAL AND 14 GM OF PROTEIN. 4. RD WILL F/U 2-3 DAYS; HIGH RISK. TIAN HERNANDEZ, RD
--- NOTE | 2017-04-04 18:30 | NUR ---
PATIENT HAD A LARGE BM. PATIENT BEING ASSISTED BY ROCKET ENGINE TESTER. PATIENT SHOWS NO S/S OF ACUTE DISTRESS ON ROOM AIR.
--- NOTE | 2017-04-04 19:10 | NUR ---
GAVE PATIENT REPORT AT BEDSIDE TO NIGHT NURSE. PATIENT ENDORSED IN STABLE CONDITION.
--- NOTE | 2017-04-04 19:11 | NUR ---
PATIENT REPORT RECEIVED FROM MORNING NURSE. PATIENT IS AWAKE, ALERT AND ORIENTED. PATIENT SITTING IN CHAIR. NO SIGNS AND SYMPTOM OF DISTRESS NOTED. NO COMPLAINTS OF PAIN AT THIS TIME. PATIENT'S FAMILY IS AT BEDSIDE. RIJ TRIPLE LUMEN NOTED. IV TUBING NEEDS TO BE CHANGED. PATIENT ON ROOM AIR, BREATHING IS EVEN AND UNLABORED. SKIN IS INTACT. PLAN OF CARE DISCUSSED WITH PATIENT, PATIENT VERBALIZED UNDERSTANDING. CALL LIGHT WITHIN REACH. WILL CONTINUE TO MONITOR.
[2017-04-04 20:00] VITALS: BP 110/71
--- NOTE | 2017-04-04 20:00 | NUR ---
CHANGED IV TUBING. ASSISTED PATIENT BACK TO BED. PATIENT'S FAMILY MEMBER HELPED. PATIENT TOLERATED WELL. NO SOB NOTED. BED IN LOWEST POSITION, SIDE RAILS UP AND CALL LIGHT WITHIN REACH. WILL CONTINUE TO MONITOR.
[2017-04-05] VITALS: BP 110/50
--- NOTE | 2017-04-05 | NUR ---
CHECKED ON PATIENT. PATIENT IS ASLEEP, NO SIGNS AND SYMPTOMS OF DISTRESS NOTED. BED IN LOWEST POSITION, SIDE RAILS UP AND CALL LIGHT WITHIN REACH. WILL CONTINUE TO MONITOR.
[2017-04-05 04:00] VITALS: BP 109/65
[2017-04-05] MEDS: NACL 0.45% 1,000 ML IV SCH ×2 (04:50→22:13)
[2017-04-05] MEDS: BLOOD GLUCOSE MONITORING 1 DEV DEV FS SCH ×4 (06:39→20:45)
[2017-04-05] MEDS: INSULIN LISPRO SLIDING SCALE 100 UNITS/ML VIAL SUBQ PRN ×2 (07:25→22:19)
--- NOTE | 2017-04-05 07:33 | NUR ---
PATIENT REPORT GIVEN TO MORNING NURSE. PATIENT IS IN STABLE CONDITION
--- NOTE | 2017-04-05 07:35 | NUR ---
PATIENT REPORT GIVEN AT BEDSIDE, PATIENT IS AAOX3 AND SHOWS NO S/S OF ACUTE DISTRESS ON ROOM AIR. ON TELE MONITOR. NOTED DUSKY SKIN TONE AND BLE SKIN RASH. RT IJ TRIPLE LUMEN ASSESSED AND ONLY BROWN PORT IS PATENT AND INFUSING IVF'S WELL. PATIENT DENIES PAIN AT THIS TIME. DISCUSSED POC WITH PATIENT AND HE VERBALIZED UNDERSTANDING. THE BED IS IN LOW POSITION WITH CALL LIGHT WITHIN REACH.
[2017-04-05 08:00] VITALS: BP 133/71
[2017-04-05] MEDS: DOCUSATE 100 MG/10 ML UDC PO SCH (08:32)
[2017-04-05] MEDS: INSULIN NPH HUM/REG INSULIN HM 100 UNIT/ML 10 ML VIAL SUBQ SCH ×2 (08:38→21:00)
--- NOTE | 2017-04-05 08:43 | NUR ---
ADMINISTERED SCHEDULED MEDICATIONS. PATIENT REFUSED COLACE AT THIS TIME HE STATED, " I DON'T NEED IT, I HAD A BM YESTERDAY." PATIENT WAS EDUCATED ON BENEFITS FOR MEDICATION. PATIENT VERBALIZED UNDERSTANDING. ALL NEEDS MET AT THIS TIME.
--- NOTE | 2017-04-05 10:44 | NUR ---
PATIENT IS SLEEPING AND EASILY AWOKEN BY VOICE. PATIENT SHOWS NO S/S OF ACUTE DISTRESS AT THIS TIME. BED IN LOW POSITION WITH CALL LIGHT WITHIN REACH.
--- NOTE | 2017-04-05 11:32 | NUR ---
PATIENT IS SLEEPING AND SHOWS NO S/S OF ACUTE DISTRESS AT THIS TIME.
[2017-04-05 12:00] VITALS: BP 130/52
--- NOTE | 2017-04-05 13:00 | NUR ---
REJI CARLSON STATED PATIENT HAS DARK BLACK STOOLS WILL NOTIFY DR ALVAREZ.
[2017-04-05 13:01] LABS: HEMOGLOBIN 12.2 g/dL (12.0-18.0); MEAN CORPUSCULAR HEMOGLOBIN 29 pg (27-31); MEAN CORPUSCULAR HGB CONC 33 g/dL (33-37); MEAN CORPUSCULAR VOLUME 88 fL (80-94); PLATELET COUNT (AUTO) 85 K/uL (140-450); RED BLOOD CELL COUNT(AUTO) 4.22 MIL/uL (4.20-6.10); RED CELL DISTRIBUTION WIDTH 14.9 % (11.6-13.7); WHITE BLOOD COUNT (AUTO) 5.5 K/uL (4.8-10.8)
[2017-04-05 13:08] LABS: ANION GAP 9.1 (8-16); CARBON DIOXIDE 30.6 mmol/L (21-32); CREATININE 0.8 mg/dL (0.7-1.3)
[2017-04-05 13:22] LABS: POTASSIUM 2.7 mmol/L (3.5-5.1)
--- NOTE | 2017-04-05 13:25 | NUR ---
MADE DR AWARE OF CRITICAL LAB VALUES OF SODIUM 160 AND POTASSIUM 2.7 AND OF DARK BLACK STOOL, DR TO PLACE ORDERS AND SEE PATIENT.
[2017-04-05 13:41] LABS: BASOPHILS % (MANUAL) 0 % (0-2); EOSINOPHILS % (MANUAL) 11 % (0-4); LYMPHOCYTES % (MANUAL) 28 % (20-46); MONOCYTES % (MANUAL) 7 % (5-12)
[2017-04-05] MEDS: DEXTROSE 5% 1,000 ML IV SCH ×2 (14:45→18:39)
[2017-04-05] MEDS ORDERED: POTASSIUM CHLORIDE 40 MEQ, LIDOCAINE 1% 25 MG in NACL 0.9% 250 ML IV SCH (15:30)
[2017-04-05 16:00] VITALS: BP 143/77
--- NOTE | 2017-04-05 16:30 | NUR ---
ADMINISTERED SCHEDULED MEDICATIONS, IV MED INFUSING WELL. PATIENT FAMILY AT BEDSIDE ALL NEEDS MET AT THIS TIME.
--- NOTE | 2017-04-05 18:15 | NUR ---
PATIENT STATES HE WOULD LIKE SOMETHING FOR HIS RASH DR ALVAREZ AWARE AND IS TO PLACE ORDERS. PATIENT CONTINUOS TO REFUSE DIET, ENCOURAGED TO EAT HOWEVER STATES, "WHEN I EAT I DON'T MAKE IT TO THE BATHROOM ON TIME." THE BED IS IN LOW POSITION WITH CALL LIGHT WITHIN REACH, FAMILY AT BEDSIDE.
[2017-04-05] MEDS ORDERED: HYDRAGUARD CREAM TP SCH (18:20)
--- NOTE | 2017-04-05 19:15 | NUR ---
PATIENT ENCOURAGED TO CALL WHEN ASSISTANCE IS NEEDED TO USE THE BATHROOM AND ENCOURAGED TO EAT. PATIENT STATES HE MIGHT LATER TRY TO EAT. PATIENT HAS FAMILY AT BEDSIDE. PATIENT REQUESTED TO HAVE BENADRYL FOR INCONTINENT DERMATITIS. SANTI DIAZ IS AWARE AND STATED SHE WILL F/U WITH PATIENT'S REQUEST. GAVE PATIENT REPORT AT BEDSIDE TO NIGHT NURSE. PATIENT ENDORSED IN STABLE CONDITION.
--- NOTE | 2017-04-05 19:16 | NUR ---
PATIENT REPORT RECEIVED AT BEDSIDE FROM MORNING NURSE. PATIENT IS AWAKE AND ALERT. PATIENT'S FAMILY AT BEDSIDE. NO SIGNS AND SYMPTOMS OF DISTRESS NOTED. NO COMPLAINTS OF PAIN AT THIS TIME. RIJ TRIPLE LUMEN NOTED, WITH K RIDER INFUSING WELL. PLAN OF CARE DISCUSSED WITH PATIENT PATIENT VERBALIZED UNDERSTANDING. BED IN LOWEST POSITION, SIDE RAILS UP AND CALL LIGHT WITHIN REACH. WILL CONTINUE TO MONITOR.
[2017-04-05 20:00] VITALS: BP 127/58
[2017-04-05] MEDS ORDERED: diphenhydrAMINE 50 MG/ML VIAL IVP PRN (20:20)
[2017-04-05 21:34] LABS: ANION GAP 10.6 (8-16); CARBON DIOXIDE 30.5 mmol/L (21-32); CREATININE 0.8 mg/dL (0.7-1.3); POTASSIUM 3.1 mmol/L (3.5-5.1)
--- NOTE | 2017-04-05 21:40 | NUR ---
CRITICAL LAB VALUE OF SODIUM [address] OLMEDO. ORDERS RECEIVED.
--- NOTE | 2017-04-05 22:30 | NUR ---
CHECKED ON PATIENT. PATIENT IS ASLEEP. NO SIGNS AND SYMPTOMS OF DISTRESS NOTED. BREATHING EVEN AND UNLABORED. BED IN LOWEST POSITION, SIDE RAILS UP AND CALL LIGHT WITHIN REACH. WILL CONTINUE TO MONITOR.
[2017-04-06] VITALS: BP 105/57
--- NOTE | 2017-04-06 | NUR ---
CHECKED ON PATIENT. PATIENT IS ASLEEP. NO SIGNS AND SYMPTOMS OF DISTRESS NOTED. BED IN LOWEST POSITION, SIDE RAILS UP AND CALL LIGHT WITHIN REACH. WILL CONTINUE TO MONITOR.
[2017-04-06] MEDS: NACL 0.45% 1,000 ML IV SCH ×4 (01:45→19:45)
[2017-04-06 04:00] VITALS: BP 110/60
[2017-04-06] MEDS: BLOOD GLUCOSE MONITORING 1 DEV DEV FS SCH ×4 (06:35→20:33)
--- NOTE | 2017-04-06 07:16 | NUR ---
ASSUMED CONTINUITY OF CARE. NO SIGNS AND SYMPTOMS OF ACUTE DISTRESS NOTICED. INITIAL ASSESSMENT DONE. KEEP COMFORTABLE ON BED. EXPLAINED DIAGNOSIS, PLAN OF CARE, PAIN MANAGEMENT TEACHING, USE OF CALL LIGHT/BED/TV/BATHROOM. VERBALIZED UNDERSTANDING. FALL PRECAUTION APPLIED. CALL LIGHT WITHIN REACH.
--- NOTE | 2017-04-06 07:16 | NUR ---
PATIENT REPORT GIVEN TO MORNING NURSE AT BEDSIDE. PATIENT IS IN STABLE CONDITION.
--- NOTE | 2017-04-06 07:17 | NUR ---
Patient's Plan of Care was discussed and reviewed with SUPERVISOR PAINT DEPARTMENT: HELDER.
[2017-04-06 07:28] LABS: BASOPHILS # (AUTO) 0.2 K/uL (0.00-0.22); BASOPHILS % (AUTO) 3.6 % (0.0-2.0); EOSINOPHILS # (AUTO) 0.4 K/uL (0-0.4); EOSINOPHILS % (AUTO) 6.5 % (0.0-4.0); HEMATOCRIT 37.6 % (36-52); HEMOGLOBIN 12.3 g/dL (12.0-18.0); LYMPHOCYTES # (AUTO) 1.8 K/uL (2.0-11.5); LYMPHOCYTES % (AUTO) 33.1 % (20.5-51.1); MEAN CORPUSCULAR HEMOGLOBIN 29 pg (27-31); MEAN CORPUSCULAR HGB CONC 33 g/dL (33-37); MEAN CORPUSCULAR VOLUME 88 fL (80-94); MONOCYTES # (AUTO) 0.7 K/uL (0.8-1.0); MONOCYTES % (AUTO) 12.5 % (1.7-9.3); NEUTROPHILS # (AUTO) 2.4 K/uL (1.8-7.7); NEUTROPHILS % (AUTO) 44.3 % (42.2-75.2); PLATELET COUNT (AUTO) 63 K/uL (140-450); RED BLOOD CELL COUNT(AUTO) 4.28 MIL/uL (4.20-6.10); RED CELL DISTRIBUTION WIDTH 15.2 % (11.6-13.7)
[2017-04-06 07:50] LABS: ANION GAP 12.2 (8-16); CARBON DIOXIDE 29.7 mmol/L (21-32); CREATININE 0.8 mg/dL (0.7-1.3)
[2017-04-06 07:51] LABS: WHITE BLOOD COUNT (AUTO) 5.5 K/uL (4.8-10.8)
[2017-04-06 07:59] LABS: POTASSIUM 2.9 mmol/L (3.5-5.1)
[2017-04-06 08:00] VITALS: BP 124/57
[2017-04-06 08:14] LABS: MAGNESIUM 1.9 mg/dL (1.8-2.4); PHOSPHORUS 3.3 mg/dL (2.5-4.9)
--- NOTE | 2017-04-06 08:45 | NUR ---
PHYSICAL THERAPIST CAME FOR PT. EVAL AND TREATMENT.
[2017-04-06] MEDS: DOCUSATE 100 MG/10 ML UDC PO SCH (09:00)
--- NOTE | 2017-04-06 09:15 | NUR ---
VERIFIED WITH DR. FLYNN ABOUT ORDER OF IVF 1/2 NS AT 120 ML/HR AND D5 AT 80 ML/HR. PER DR. FLYNN IVF HAVE TO INFUSE BOTH AT THE SAME TIME.
[2017-04-06] MEDS: DEXTROSE 5% 1,000 ML IV SCH ×2 (09:41→20:13)
[2017-04-06] MEDS: INSULIN NPH HUM/REG INSULIN HM 100 UNIT/ML 10 ML VIAL SUBQ SCH ×2 (09:45→20:32)
--- NOTE | 2017-04-06 09:59 | NUR ---
CALLED TREVIN FROM PHARMACY AND VERIFIED ORDER OF IVF 1/2 NS AT 120ML/HR AND D5 AT 80 ML/HR. PER TREVIN FROM PHARMACY, IVF CAN INFUSED AT THE SAME TIME AND HE ALREADY TALKED TO DR. FLYNN ABOUT IT. INFORMED CHARGE NURSE LALITO FENTON -EMILY.
[2017-04-06] MEDS: POTASSIUM CHLORIDE 40 MEQ in DEXTROSE 5% 250 ML IV SCH ×2 (10:37→15:05)
[2017-04-06] MEDS ORDERED: CALCIUM CARB/VIT-D 500 MG/200 IU 1 TAB PO SCH (10:45)
[2017-04-06 12:00] VITALS: BP 96/56
[2017-04-06] MEDS ORDERED: KCL 20 MEQ/WATER INJ PREMIX 200 ML IV SCH (12:00)
[2017-04-06] MEDS: INSULIN LISPRO SLIDING SCALE 100 UNITS/ML VIAL SUBQ PRN ×3 (12:16→20:31)
--- NOTE | 2017-04-06 12:50 | NUR ---
PT. WENT TO BATHROOM. TOLERATED WELL. NO C/O PAIN. NO SOB, NOTED.
[2017-04-06] MEDS ORDERED: HYDRAGUARD CREAM TP SCH (13:00)
[2017-04-06 16:00] VITALS: BP 108/55
[2017-04-06 17:15] LABS: ANION GAP 11.1 (8-16); CARBON DIOXIDE 31.1 mmol/L (21-32); CREATININE 0.8 mg/dL (0.7-1.3); POTASSIUM 3.2 mmol/L (3.5-5.1)
--- NOTE | 2017-04-06 17:43 | NUR ---
* ST D/C NOTE * Pt seen sitting up at EOB w/2 brothers present. Pt consenting to skilled CREDIT ADMINISTRATOR tx w/brothers present. Pt alert, moderately cooperative and engaged throughout session, reporting no c/o pain at this time. Pt tolerating 2/2 alternating PO trials of regular solid saltine crackers w/o s/s of aspiration, exhibiting no residue or pocketing in oral cavity after PO intake of regular solids. Pt however refusing further therapeutic feeding trials of solids at this time d/t pt's reports of having wet, uncontrolled BM immediately after PO intake over the course of the past 1-2 days. Nsg informed, w/nsg stating he will inform MD and possibly obtain an order for medication to help control BMs, w/pt agreeable. Pt however accepting and tolerating 6/6 alternating PO trials of thin liquid apple juice via a straw, all w/o s/s of aspiration exhibiting clear voicing WFL w/o wet or gargly vocal quality after PO intake. Pt still refusing therapeutic feeding trials of solids at this time. Pt education completed regarding benefits of consuming as much of meals as possible to maintain adequate nutrition & hydration PO and preserve quality of life & pt dignity, w/pt and caregivers/brothers verbalizing understanding. It is thus recommended pt's PO diet consistency be upgraded to regular solids w/thin liquids for all meals, w/pt and caregivers/brothers agreeable. Pt, caregiver/brothers & caregiver/nsg education completed regarding results of skilled CREDIT ADMINISTRATOR tx, benefits of abiding by clinician's recommendations for increased PO intake, diet upgrade & prognosis for improvement, w/pt, caregivers/brothers & caregiver/nsg verbalizing understanding and agreement w/clinician's recommendations. Recommend: - PO diet consistency of REGULAR SOLIDS W/THIN LIQUIDS - Maintain aspiration precautions during PO intake 2/2 to pt's hx of AMS No further ST follow up recommended at this time. G8997 CI G8998 NOMS Level 1 Time In/Out 17:00 - 17:30
--- NOTE | 2017-04-06 17:50 | NUR ---
INFORMED DR. ORDOÑEZ THAT PT. C/O 2 LOOSE BM AND ASKED FOR ANTI-DIARRHEA MEDICINE. PER DR. LYN, SHE WILL TAKE CARE OF IT.
[2017-04-06] MEDS ORDERED: KCL 20 MEQ/WATER INJ PREMIX 200 ML IV ONE (18:20)
--- NOTE | 2017-04-06 19:13 | NUR ---
RECEIVED REPORT AT BEDSIDE FROM DAY SHIFT NURSE. PT A/OX4, ON 2L O2 VIA NASAL CANNULA. RIGHT IJ, INTACT AND ASYMPTOMATIC. RASH AT ABDOMINAL FOLDS, BUT SKIN INTACT. SAFETY PRECAUTIONS IN PLACE. UPDATED BOARD. VITAL SIGNS WITHIN NORMAL LIMITS. PT IN STABLE CONDITION, NO SIGNS OF DISTRESS NOTED. BED IN LOW POSITION, CALL LIGHT WITHIN REACH. WILL CONTINUE TO MONITOR.
--- NOTE | 2017-04-06 19:13 | NUR ---
BEDSIDE REPORT GIVEN TO TAZ CLARK. IVF INFUSING WELL. IN STABLE CONDITION.
[2017-04-06 19:53] VITALS: BP 90/50
[2017-04-06] MEDS: HYDRAGUARD CREAM TP SCH (20:26)
--- NOTE | 2017-04-06 20:35 | NUR ---
ADMINISTERED HUMALIN AND HUMALOG FOR BS 179, AND APPLIED HYDRAGUARD AT ABDOMINAL FOLDS. PT TOLERATED WELL. Addendum: 04/07/17 at 0517 by Scarlett Kohler RN WITHHELD HEPARIN BECAUSE PLATELETS ARE 63.
[2017-04-07] VITALS: BP 119/55
--- NOTE | 2017-04-07 | NUR ---
VITAL SIGNS WITHIN NORMAL LIMITS. PT IN STABLE CONDITION, NO SIGNS OF DISTRESS NOTED. BED IN LOW POSITION, CALL LIGHT WITHIN REACH. WILL CONTINUE TO MONITOR.
[2017-04-07] MEDS: NACL 0.45% 1,000 ML IV SCH ×3 (01:00→22:00)
[2017-04-07 04:00] VITALS: BP 120/59
--- NOTE | 2017-04-07 04:00 | NUR ---
VITAL SIGNS WITHIN NORMAL LIMITS. PT IN STABLE CONDITION, NO SIGNS OF DISTRESS NOTED. BED IN LOW POSITION, CALL LIGHT WITHIN REACH. WILL CONTINUE TO MONITOR.
[2017-04-07] MEDS: HYDRAGUARD CREAM TP SCH ×3 (05:45→21:00)
[2017-04-07] MEDS: BLOOD GLUCOSE MONITORING 1 DEV DEV FS SCH ×4 (06:51→21:00)
[2017-04-07] MEDS: INSULIN LISPRO SLIDING SCALE 100 UNITS/ML VIAL SUBQ PRN (06:51)
--- NOTE | 2017-04-07 07:15 | NUR ---
ENDORSED PT TO DAY SHIFT NURSE FOR CONTINUITY OF CARE. PT IN STABLE CONDITION.
--- NOTE | 2017-04-07 07:15 | NUR ---
ASSUMED CONTINUITY OF CARE. NO SIGNS AND SYMPTOMS OF ACUTE DISTRESS NOTED. INITIAL ASSESSMENT DONE. KEEP COMFORTABLE ON BED. EXPLAINED DIAGNOSIS, PLAN OF CARE, PAIN MANAGEMENT TEACHING, USE OF CALL LIGHT/BED/TV/BATHROOM. VERBALIZED UNDERSTANDING. FALL PRECAUTION APPLIED. CALL LIGHT WITHIN REACH.
--- NOTE | 2017-04-07 07:16 | NUR ---
Patient's Plan of Care was discussed and reviewed with FURNISHINGS CONSERVATOR: ASHLEY PENDLETON
[2017-04-07 07:52] LABS: BASOPHILS # (AUTO) 0.1 K/uL (0.00-0.22); BASOPHILS % (AUTO) 2.3 % (0.0-2.0); EOSINOPHILS # (AUTO) 0.3 K/uL (0-0.4); EOSINOPHILS % (AUTO) 5.9 % (0.0-4.0); HEMATOCRIT 36.3 % (36-52); HEMOGLOBIN 11.6 g/dL (12.0-18.0); LYMPHOCYTES # (AUTO) 1.6 K/uL (2.0-11.5); LYMPHOCYTES % (AUTO) 31.8 % (20.5-51.1); MEAN CORPUSCULAR HEMOGLOBIN 28 pg (27-31); MEAN CORPUSCULAR HGB CONC 32 g/dL (33-37); MEAN CORPUSCULAR VOLUME 88 fL (80-94); MONOCYTES # (AUTO) 0.7 K/uL (0.8-1.0); MONOCYTES % (AUTO) 13.2 % (1.7-9.3); NEUTROPHILS # (AUTO) 2.5 K/uL (1.8-7.7); NEUTROPHILS % (AUTO) 46.8 % (42.2-75.2); PLATELET COUNT (AUTO) 82 K/uL (140-450); RED BLOOD CELL COUNT(AUTO) 4.11 MIL/uL (4.20-6.10); RED CELL DISTRIBUTION WIDTH 14.9 % (11.6-13.7)
[2017-04-07 08:00] VITALS: BP 125/56
[2017-04-07 08:48] LABS: ANION GAP 13.3 (8-16); CARBON DIOXIDE 28.5 mmol/L (21-32); CREATININE 0.8 mg/dL (0.7-1.3)
[2017-04-07] MEDS ORDERED: CALCIUM CARB/VIT-D 500 MG/200 IU 1 TAB PO SCH (09:00)
[2017-04-07] MEDS: DOCUSATE 100 MG/10 ML UDC PO SCH (09:00)
[2017-04-07] MEDS: INSULIN NPH HUM/REG INSULIN HM 100 UNIT/ML 10 ML VIAL SUBQ SCH (09:13)
--- NOTE | 2017-04-07 09:20 | NUR ---
VERIFIED WITH DR. ARIZMENDI ABOUT ORDER OF HEPARIN SODIUM 5000 UNITS SUB-Q Q12 HOUR. PER DR. ARIZMENDI, HOLD HEPARIN IF PLT BELOW 70. INFORMED CHARGE NURSE LALITO CLARK.
[2017-04-07 09:22] LABS: POTASSIUM 2.8 mmol/L (3.5-5.1)
[2017-04-07 09:29] LABS: WHITE BLOOD COUNT (AUTO) 5.2 K/uL (4.8-10.8)
[2017-04-07] MEDS ORDERED: POTASSIUM CHLORIDE 30 MEQ in DEXTROSE 5% 1,000 ML IV SCH (11:15)
--- NOTE | 2017-04-07 11:32 | NUR ---
PHYSICAL THERAPIST CAME AND BROUGHT PT. TO PT DEPARTMENT VIA WHEELCHAIR.
--- NOTE | 2017-04-07 11:50 | NUR ---
PT. BACK FROM PT. VIA WHEELCHAIR. NO DISCOMFORT NOTED.
[2017-04-07 12:00] VITALS: BP 126/60
[2017-04-07 13:18] LABS: ANION GAP 11.8 (8-16); CARBON DIOXIDE 30.2 mmol/L (21-32); CREATININE 0.8 mg/dL (0.7-1.3)
--- NOTE | 2017-04-07 15:12 | NUR ---
04/07/17 RD FOLLOW UP COMPLETED PLEASE REFER TO NUTRITION PROGRESS NOTE UNDER CARE ACTIVITY FOR ESTIMATED NUTRITION NEEDS. 1. CONTINUE BRAT (BANANAS, RICE, APPLESAUCE, TOAST) DIET MEDICALLY NECESSARY. 2. WHEN MEDICALLY APPROPRIATE CONSIDER DIET CHANGE TO CCHO 60 GM DIET WITH THIN LIQUIDS (NO TEXTURE MODIFICATIONS) -DATA REPORTING ANALYST RECOMMENDATIONS 04/06/16 RECOMMENDS REGULAR FOODS WITH THIN LIQUIDS 3. ENCOURAGE INCREASED PO INTAKE 4. RD TO FOLLOW UP 2-3 DAYS; HIGH NUTRITION RISK NEHEMIAH HOWE RD
[2017-04-07] MEDS: INSULIN NPH HUMAN ISOPHANE 100 UNIT/ML VIAL SUBQ SCH (16:35)
[2017-04-07 16:36] LABS: ANION GAP 10.9 (8-16); CARBON DIOXIDE 29.1 mmol/L (21-32); CREATININE 0.8 mg/dL (0.7-1.3)
--- NOTE | 2017-04-07 19:14 | NUR ---
BEDSIDE REPORT GIVEN TO ADAN SEPULVEDA -EMILY. IVF INFUSING WELL. IN STABLE CONDITION.
--- NOTE | 2017-04-07 19:15 | NUR ---
PATIENT REPORT RECEIVED FROM MORNING NURSE AT BEDSIDE. PATIENT IS AWAKE, ALERT AND ORIENTED. PATIENT'S FAMILY IS AT BEDSIDE. NO SIGNS AND SYMPTOMS OF DISTRESS NOTED. NO COMPLAINTS OF PAIN AT THIS TIME. PATIENT ON ROOM AIR. RIJ TRIPLE LUMEN NOTED WITH 2 IVF INFUSING WELL. BED IN LOWEST POSITION, SIDE RAILS UP AND CALL LIGHT WITHIN REACH. WILL CONTINUE TO MONITOR.
[2017-04-07 20:00] VITALS: BP 100/56
[2017-04-07 20:44] LABS: ANION GAP 12.4 (8-16); CARBON DIOXIDE 24.8 mmol/L (21-32); CREATININE 0.6 mg/dL (0.7-1.3); POTASSIUM 3.2 mmol/L (3.5-5.1)
[2017-04-07] MEDS ORDERED: CALCIUM GLUCONATE 500 MG TAB PO SCH (21:45)
[2017-04-07] MEDS ORDERED: ALTEPLASE 2 MG VIAL MC SCH (22:05)
[2017-04-07] MEDS ORDERED: WATER STERILE 10 ML MC ONE (22:55)
--- NOTE | 2017-04-07 23:00 | NUR ---
CALCIUM GLUCONATE NOT AVAILABLE, NOTIFIED DR. OLMEDO
[2017-04-08 01:53] LABS: ANION GAP 9.1 (8-16); CARBON DIOXIDE 31.8 mmol/L (21-32); CREATININE 0.8 mg/dL (0.7-1.3)
[2017-04-08 02:02] LABS: POTASSIUM 2.9 mmol/L (3.5-5.1)
[2017-04-08] MEDS: NACL 0.45% 1,000 ML IV SCH ×3 (02:06→17:55)
[2017-04-08] MEDS: POTASSIUM CHL 20 MEQ / DEXT 5% 1,000 ML IV SCH ×2 (03:25→15:47)
[2017-04-08 03:33] VITALS: BP 105/61
[2017-04-08 04:13] LABS: BASOPHILS # (AUTO) 0.2 K/uL (0.00-0.22); BASOPHILS % (AUTO) 2.7 % (0.0-2.0); EOSINOPHILS # (AUTO) 0.3 K/uL (0-0.4); EOSINOPHILS % (AUTO) 5.1 % (0.0-4.0); HEMATOCRIT 36.9 % (36-52); HEMOGLOBIN 11.5 g/dL (12.0-18.0); LYMPHOCYTES # (AUTO) 2.1 K/uL (2.0-11.5); LYMPHOCYTES % (AUTO) 38.5 % (20.5-51.1); MEAN CORPUSCULAR HEMOGLOBIN 28 pg (27-31); MEAN CORPUSCULAR HGB CONC 31 g/dL (33-37); MEAN CORPUSCULAR VOLUME 88 fL (80-94); MONOCYTES # (AUTO) 0.6 K/uL (0.8-1.0); MONOCYTES % (AUTO) 10.7 % (1.7-9.3); NEUTROPHILS # (AUTO) 2.4 K/uL (1.8-7.7); PLATELET COUNT (AUTO) 125 K/uL (140-450); RED BLOOD CELL COUNT(AUTO) 4.19 MIL/uL (4.20-6.10); RED CELL DISTRIBUTION WIDTH 15.1 % (11.6-13.7); WHITE BLOOD COUNT (AUTO) 5.6 K/uL (4.8-10.8)
[2017-04-08 04:46] LABS: ANION GAP 9.5 (8-16); CARBON DIOXIDE 31.3 mmol/L (21-32); CREATININE 0.8 mg/dL (0.7-1.3)
[2017-04-08 04:54] LABS: POTASSIUM 2.8 mmol/L (3.5-5.1)
[2017-04-08] MEDS: HYDRAGUARD CREAM TP SCH ×3 (05:01→21:00)
[2017-04-08] MEDS: INSULIN NPH HUMAN ISOPHANE 100 UNIT/ML VIAL SUBQ SCH ×2 (07:30→17:59)
[2017-04-08 08:00] VITALS: BP 105/53
[2017-04-08] MEDS: DOCUSATE 100 MG/10 ML UDC PO SCH (09:00)
[2017-04-08] MEDS: CALCIUM CARB/VIT-D 500 MG/200 IU 1 TAB PO SCH ×2 (09:00→21:00)
--- NOTE | 2017-04-08 09:57 | NUR ---
ADMINISTERED MEDICATIONS. DOCUMENTED ON PAPER MEDICATION ADMINISTRATION RECORD. BS 116. PATIENT STATED HE WILL EAT BREAKFAST. HUMULIN N 30 UNITS GIVEN.
[2017-04-08] MEDS: BLOOD GLUCOSE MONITORING 1 DEV DEV FS SCH ×3 (11:30→21:00)
--- NOTE | 2017-04-08 13:00 | NUR ---
PATIENT BS IS 169. PATIENT STATES HE WILL NOT EAT LUNCH. INSULIN COVERAGE NOT GIVEN. THE BED IS IN LOW POSITION WITH CALL LIGHT WITHIN REACH. PATIENT'S NEEDS MET AT THIS TIME.
[2017-04-08] MEDS ORDERED: KCL 20 MEQ/WATER INJ PREMIX 200 ML IV SCH (13:10)
[2017-04-08] MEDS: POTASSIUM CHLORIDE 40 MEQ in NACL 0.9% 250 ML IV SCH ×3 (15:24→23:00)
[2017-04-08 15:30] LABS: POTASSIUM 2.9 mmol/L (3.5-5.1)
[2017-04-08 15:31] LABS: CARBON DIOXIDE 28.9 mmol/L (21-32); CREATININE 0.8 mg/dL (0.7-1.3)
[2017-04-08 16:00] VITALS: BP 108/67
[2017-04-08 17:03] LABS: ANION GAP 12.8 (8-16); CARBON DIOXIDE 29.2 mmol/L (21-32); CREATININE 0.8 mg/dL (0.7-1.3)
--- NOTE | 2017-04-08 17:50 | NUR ---
PATIENT ENCOURAGED TO EAT DINNER AND STATED, " I WILL EAT DINNER." BS IS 142 AND HUMULIN 30 UNITS WAS GIVEN. PATIENT SHOWS NO S/S OF ACUTE DISTRESS ON ROOM AIR. ALL NEEDS MET AT THIS TIME. FAMILY AT BEDSIDE.
--- NOTE | 2017-04-08 18:03 | NUR ---
SPOKE WITH DR LYN AND DR OLMEDO REGARDING PATIENT C/O COUGH. TO PLACE ORDERS FOR COUGH MEDICATION PRN.
--- NOTE | 2017-04-08 19:30 | NUR ---
GAVE PATIENT REPORT AT BEDSIDE TO NIGHT NURSE. PATIENT ENDORSED IN STABLE CONDITION.
--- NOTE | 2017-04-08 19:31 | NUR ---
PATIENT REPORT RECEIVED FROM MORNING NURSE AT BEDSIDE. PATIENT IS RESTING COMFORTABLY IN BED. NO SIGNS AND SYMPTOMS OF DISTRESS NOTED. NO COMPLAINTS OF PAIN AT THIS TIME. RIJ NOTED WITH A K RIDER AND IVF INFUSING WELL. BED IN LOWEST POSITION, SIDE RAILS UP AND CALL LIGHT WITHIN REACH. WILL CONTINUE TO MONITOR.
[2017-04-08] MEDS ORDERED: POTASSIUM CHL 20 MEQ / DEXT 5% 1,000 ML IV ONE (20:48)
[2017-04-08 21:03] LABS: ANION GAP 10.9 (8-16); CARBON DIOXIDE 30.3 mmol/L (21-32); CREATININE 0.9 mg/dL (0.7-1.3); POTASSIUM 3.2 mmol/L (3.5-5.1)
[2017-04-08] MEDS ORDERED: CALCIUM CARB/VIT-D 500 MG/200 IU 1 TAB ONE (21:58)
--- NOTE | 2017-04-08 22:00 | NUR ---
PATIENT AMBULATED TO RESTROOM WITH STANDBY ASSISTANCE FROM TOP STOP ATTACHER.
[2017-04-09 01:19] LABS: CARBON DIOXIDE 32.3 mmol/L (21-32); CREATININE 0.8 mg/dL (0.7-1.3); POTASSIUM 3.3 mmol/L (3.5-5.1)
[2017-04-09] MEDS: NACL 0.45% 1,000 ML IV SCH ×3 (02:15→18:55)
[2017-04-09 04:00] VITALS: BP 100/56
[2017-04-09] MEDS: POTASSIUM CHL 20 MEQ / DEXT 5% 1,000 ML IV SCH ×2 (04:17→14:13)
[2017-04-09 04:25] LABS: ANION GAP 8.7 (8-16); CARBON DIOXIDE 30.8 mmol/L (21-32); POTASSIUM 3.5 mmol/L (3.5-5.1)
[2017-04-09 04:26] LABS: CREATININE 0.8 mg/dL (0.7-1.3)
[2017-04-09] MEDS: HYDRAGUARD CREAM TP SCH ×2 (05:11→13:08)
[2017-04-09] MEDS: BLOOD GLUCOSE MONITORING 1 DEV DEV FS SCH ×3 (06:30→17:00)
[2017-04-09] MEDS: INSULIN NPH HUMAN ISOPHANE 100 UNIT/ML VIAL SUBQ SCH ×2 (06:31→17:12)
--- NOTE | 2017-04-09 07:30 | NUR ---
PATIENT REPORT GIVEN TO MORNING NURSE AT BEDSIDE. PATIENT IS IN STABLE CONDITION
--- NOTE | 2017-04-09 07:35 | NUR ---
RECEIVED PATIENT REPORT AT BEDSIDE FROM NIGHT NURSE. PATIENT IS AAOX3 AND SHOWS NO S/S OF ACUTE DISTRESS ON ROOM AIR. PATIENT SKIN IS INTACT BUT NOTED BLE EDEMATOUS 2+ PITTING EDEMA WITH RASH. CENTRAL LINE TRIPLE LUMEN NOTED ON THE RT UPPER CHEST WITH IVF'S INFUSING WELL. PATIENT DENIES PAIN. BED IS IN LOW POSITION WITH CALL LIGHT WITHIN REACH.
[2017-04-09 08:00] VITALS: BP 124/60
[2017-04-09] MEDS: DOCUSATE 100 MG/10 ML UDC PO SCH (09:00)
[2017-04-09] MEDS: CALCIUM CARB/VIT-D 500 MG/200 IU 1 TAB PO SCH (10:41)
--- NOTE | 2017-04-09 10:44 | NUR ---
ADMINISTERED SCHEDULED MEDICATIONS LATE D/T PATIENT REQUEST TO COME BACK LATER WHEN HE IS AWAKE. PATIENT SWALLOWED MEDICATIONS WITHOUT DIFFICULTY. PATIENT REFUSED COLACE 100 MG PO BC PATIENT STATED, "I DON'T NEED IT." HEPARIN 5,000U SQ NOT GIVEN D/T CONTRAINDICATION OF LOW PLT COUNT, OKAYED BY DR ARIZMENDI. ALL NEEDS MET AT THIS TIME.
[2017-04-09 11:52] LABS: ANION GAP 11.4 (8-16); CARBON DIOXIDE 28.8 mmol/L (21-32); CREATININE 0.8 mg/dL (0.7-1.3); POTASSIUM 3.2 mmol/L (3.5-5.1)
[2017-04-09 14:03] LABS: ANION GAP 10.1 (8-16); CREATININE 0.8 mg/dL (0.7-1.3); POTASSIUM 3.1 mmol/L (3.5-5.1)
[2017-04-09] MEDS ORDERED: KCL 20 MEQ/WATER INJ PREMIX 200 ML IV ONE (14:55)
[2017-04-09] MEDS ORDERED: INSU100S10 SUBQ (15:20)
[2017-04-09] MEDS ORDERED: CALC-846 PO (15:20)
[2017-04-09] MEDS ORDERED: D50SYR IVP (15:20)
[2017-04-09] MEDS ORDERED: HUMSLIDE SUBQ (15:20)
[2017-04-09] MEDS ORDERED: POTA20SO15 PO (15:20)
[2017-04-09 16:00] VITALS: BP 111/53
[2017-04-09] MEDS ORDERED: POTASSIUM CHLORIDE 40 MEQ, LIDOCAINE 1% 25 MG in NACL 0.9% 250 ML IV SCH (16:00)
--- NOTE | 2017-04-09 18:30 | NUR ---
PATIENT'S FAMILY ON UNIT. PATIENT HAS SIGNED ALL DISCHARGE PAPERWORK. ALL QUESTIONS ANSWERED. PATIENT VERBALIZED UNDERSTANDING OF CONTINUITY OF CARE. ALL BELONGINGS IN PATIENT'S POSSESSION. PATIENT WILL BE DISCHARGED BY RAIL TRACK MAINTAINER NURSE ONCE IV MEDICATION HAS FINISHED.
--- NOTE | 2017-04-09 18:35 | NUR ---
SPOKE WITH DR OLMEDO REGARDING DC ORDER FOR CENTRAL LINE ONCE IV MEDICATION IS FINISHED.
--- NOTE | 2017-04-09 19:40 | NUR ---
GAVE PATIENT REPORT AT BEDSIDE TO NIGHT NURSE. PATIENT ENDORSED IN STABLE CONDITION.
--- NOTE | 2017-04-09 19:41 | NUR ---
RECEIVED REPORT FROM DAY SHIFT NURSE. PT IN BED TALKING TO HIS BROTHER AT BEDSIDE. PT HAS CENTRAL LINE TO RIGHT IJ 3 LUMENS, K RIDER 40 MEQ INFUSING WELL. NO C/O PAIN OR DISCOMFORT. PT WILL BE DISCHARGED TONIGHT. CALL LIGHT WITHIN REACH.
[2017-04-09 20:00] VITALS: BP 121/61
--- NOTE | 2017-04-09 20:30 | NUR ---
K RIDER DONE. CENTRAL LINE RIGHT IJ 3 LUMENS REMOVED. NO S/S OF INFECTION TO SITE. MINIMAL BLEEDING, PRESSURE APPLIED. BLEEDING STOPPED. DRESSING APPLIED. NO C/O PAIN OR SOB NOTED.
--- NOTE | 2017-04-09 20:55 | NUR ---
PT D/C. ALL D/C PAPERS SIGNED AND COPIES GIVEN TO PT. ARM BAND REMOVED. PT ACCOMPANIED BY 2 FRIENDS. PT WHEELED OUT TO FRONT LOBBY BY LOCATION AND MEASUREMENT TECHNICIAN. PT IN STABLE CONDITION.
--- NOTE | 2017-04-09 21:00 | NUR ---
CENTRAL LINE TIP SENT TO LAB FOR CULTURE.
== END 2017-04-09 20:55 | disposition home or self-care (01) | DRG 469 ==
LOC: MED 12:55 → MTU 16:43 → EDBD 16:43 → MIC 16:43 → UNDOADMIN 16:43 → MTU 04-03 18:47
PROVIDERS: ADMIT Family Medicine Sports Medicine; ATTEND Family Medicine Sports Medicine
PROC: 02HV33Z Insertion of Infusion Device into Superior Vena Cava, Percutaneous Approach (ICD-10-PCS; principal; 2017-04-01)
PROC: B548ZZA Ultrasonography of Superior Vena Cava, Guidance (ICD-10-PCS; 2017-04-01)
DX: N17.0 Acute kidney failure with tubular necrosis (principal); J96.00 Acute respiratory failure, unspecified whether with hypoxia or hypercapnia; G93.41 Metabolic encephalopathy; E11.10 Type 2 diabetes mellitus with ketoacidosis without coma; D68.59 Other primary thrombophilia; E87.0 Hyperosmolality and hypernatremia; E87.2 Acidosis; E87.8 Other disorders of electrolyte and fluid balance, not elsewhere classified; E86.0 Dehydration; K52.9 Noninfective gastroenteritis and colitis, unspecified; B15.9 Hepatitis A without hepatic coma; R74.0 Nonspecific elevation of levels of transaminase and lactic acid dehydrogenase [LDH]; E83.42 Hypomagnesemia; E87.6 Hypokalemia; E83.39 Other disorders of phosphorus metabolism; Z91.19 Patient's noncompliance with other medical treatment and regimen
CPT/HCPCS: 36415; 36600; 71045; 76700; 80048; 80053; 80305; 81001; 82009; 82140; 82150; 82550; 82553; 82803; 82948; 83036; 83605; 83690; 83735; 83880; 84100; 84439; 84443; 84479; 84484; 85025; 85610; 85730; 86704; 86706; 86708; 86709; 86803; 87040; 87070; 87075; 87081; 87086; 87205; 87340; 92526; 93005; 93925; 93970; 96361; 96365; 96366; 96368; 96375; 97110; 97116; 97140; 97530; 97799; 99291; J1200; J1642; J1644; J1815; J2001; J2060; J2270; J2997; J3475; J3480; J3490; J7030; J7060; J7070; Q0092